=== PATIENT | male | born 1980 | race American Indian/Alaskan Native ===

== ENCOUNTER 2016-06-20 19:01 | Emergency (ER) | payer SELFPAY ==
[2016-06-20 19:06] VITALS: BMI 25.0
[2016-06-20 19:10] VITALS: BP 132/86; PULSE 82; RESP 18; O2SAT 95
[2016-06-20 19:23] VITALS: TEMP 98
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
== END 2016-06-20 19:50 | disposition home or self-care (01) ==
LOC: ED 19:01
DX: L84 Corns and callosities (principal); F17.210 Nicotine dependence, cigarettes, uncomplicated

== ENCOUNTER 2016-10-11 20:51 | Emergency (ER) | payer SELFPAY ==
[2016-10-11 20:51] VITALS: BMI 25.0
[2016-10-11 21:00] VITALS: TEMP 99.7
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
[2016-10-11 23:26] VITALS: BP 137/77; PULSE 80; RESP 16; O2SAT 98
== END 2016-10-11 23:33 | disposition home or self-care (01) ==
LOC: ED 20:51
DX: S01.01XA Laceration without foreign body of scalp, initial encounter (principal); X99.0XXA Assault by sharp glass, initial encounter

== ENCOUNTER 2016-10-18 17:18 | Emergency (ER) | payer SELFPAY ==
[2016-10-18 17:19] VITALS: BMI 25.0
[2016-10-18 17:46] VITALS: RESP 16; TEMP 98.7
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
[2016-10-18 19:04] VITALS: BP 128/76; PULSE 82; O2SAT 98
== END 2016-10-18 18:40 | disposition home or self-care (01) ==
LOC: ED 17:18
DX: Z48.02 Encounter for removal of sutures (principal)